=== PATIENT | female | born 1990 | race Caucasian/White ===

== ENCOUNTER 2023-03-12 23:37 | Emergency (ER) | payer SELFPAY ==
[~2023-03-12] VITALS: Ht 160 cm; Wt 68.2 kg
[2023-03-13] MEDS ORDERED: NS 1,000 ML IV ONE (00:30)
[2023-03-13] MEDS ORDERED: SUMAtriptan 25 MG TAB PO ONE (02:30)
[2023-03-13 03:12] VITALS: BP 98/58; PULSE 106; TEMP 99.2
== END 2023-03-13 03:11 | disposition home or self-care (01) ==
LOC: COL.ER 23:37
DX: R51.9 Headache, unspecified (principal)
CPT/HCPCS: J0780; J7030

== ENCOUNTER 2023-03-24 10:11 | Emergency (ER) | payer SELFPAY ==
[~2023-03-24] VITALS: Ht 162.6 cm; Wt 64.5 kg
[2023-03-24 10:19] VITALS: TEMP 98.3
[2023-03-24] MEDS ORDERED: Acetaminophen 500 MG TAB PO ONE (11:15)
[2023-03-24] MEDS ORDERED: Ondansetron 4 MG/2 ML VIAL IV ONE (11:15)
[2023-03-24] MEDS ORDERED: LR 1,000 ML IV ONE (11:15)
[2023-03-24 11:41] LABS: BASO % 0.4 % (0.0-2.0); EOS % 0.2 % (0.0-4.0); GRAN # 7.4 K/mm3 (1.4-6.5); GRAN % 74.9 % (42.2-75.2); HEMATOCRIT 45.3 % (37.0-47.0); HEMOGLOBIN 14.3 g/dl (12.5-16.0); LYMPH # 1.8 K/mm3 (1.2-3.4); LYMPH % 18.5 % (20.0-51.0); MEAN CELL VOLUME 89 fl (80.0-100.0); MEAN CORPUSCULAR HEMOGLOBIN 28 pg (27-31); MEAN CORPUSCULAR HGB CONC 32 g/dl (33.0-37.0); MEAN PLATELET VOLUME 10.4 fl (7.4-10.4); MONO # 0.6 K/mm3 (0.1-0.6); MONO % 5.7 % (1.7-9.3); PLATELET COUNT 333 K/mm3 (130-400); RED BLOOD COUNT 5.11 M/mm3 (4.10-5.30); REDCELL DISTRIBUTION WIDTH-CV 12.6 % (11.5-14.5)
[2023-03-24 11:55] LABS: COLLECTION METHOD CLEAN CATCH
[2023-03-24 11:58] LABS: ALBUMIN 3.7 gm/dL (3.5-5.0); BILIRUBIN,TOTAL 0.5 mg/dL (0.2-1.2); CALCIUM 9.3 mg/dL (8.4-10.2); CREATININE, serum 0.71 mg/dL (0.57-1.11); POTASSIUM 4.2 mmol/L (3.5-4.5); TOTAL PROTEIN 7.2 gm/dL (6.2-8.1)
[2023-03-24 12:11] LABS: PH 8.5 (5.0-8.5); URINE APPEARANCE Cloudy (CLEAR/HAZY); URINE BACTERIA Occasional /hpf (NONE SEEN); URINE BLOOD 2+ (NEGATIVE); URINE COLOR Yellow (YELLOW); URINE GLUCOSE Negative (NEGATIVE); URINE KETONE Negative (NEGATIVE); URINE NITRATE Negative (NEGATIVE); URINE PROTEIN(semi-quant) 2+ (NEGATIVE); URINE UROBILINOGEN 0.2 E.U/dL (0.2-1.0)
[2023-03-24] MEDS ORDERED: ZOFRAN ODT4 MG PO (12:12)
[2023-03-24 12:49] LABS: BILIRUBIN,DIRECT 0.3 mg/dL (0.0-0.5)
[2023-03-24] MEDS ORDERED: cefTRIAXone 1 G in Water For Injection,Sterile 10 ML IV ONE (13:00)
[2023-03-24] MEDS ORDERED: VANTIN 200200 MG/TAB PO (13:45)
[2023-03-24 13:52] VITALS: BP 123/78; PULSE 84
== END 2023-03-24 13:52 | disposition home or self-care (01) ==
LOC: COL.ER 10:11
PROVIDERS: Emergency Medicine
DX: N39.0 Urinary tract infection, site not specified (principal); R11.2 Nausea with vomiting, unspecified; Z90.89 Acquired absence of other organs
CPT/HCPCS: J0696; J2405; J7120

== ENCOUNTER 2023-03-28 10:37 | Emergency (ER) | payer SELFPAY ==
[~2023-03-28] VITALS: Ht 160 cm; Wt 65.0 kg
[~2023-03-28 10:37] MED LIST: VANTIN 200200 MG/TAB PO; ZOFRAN ODT4 MG PO
[2023-03-28 10:45] VITALS: TEMP 98.1
[2023-03-28] MEDS ORDERED: NS 1,000 ML IV ONE (11:00)
[2023-03-28] MEDS ORDERED: Morphine 4 MG/ML VIAL IV ONE (11:00)
[2023-03-28] MEDS ORDERED: cefTRIAXone 1 G in Water For Injection,Sterile 10 ML IV ONE (11:30)
[2023-03-28] MEDS ORDERED: Ketorolac 30 MG/ML VIAL IV ONE (11:30)
[2023-03-28] MEDS ORDERED: Ondansetron 4 MG/2 ML VIAL IV ONE (11:30)
[2023-03-28 11:31] LABS: BASO # 0.1 K/mm3 (0.0-0.2); BASO % 0.7 % (0.0-2.0); EOS # 0.1 K/mm3 (0.0-0.7); EOS % 0.9 % (0.0-4.0); GRAN # 5.4 K/mm3 (1.4-6.5); HEMATOCRIT 45.1 % (37.0-47.0); HEMOGLOBIN 14.5 g/dl (12.5-16.0); LYMPH # 1.8 K/mm3 (1.2-3.4); LYMPH % 23.1 % (20.0-51.0); MEAN CELL VOLUME 88 fl (80.0-100.0); MEAN CORPUSCULAR HEMOGLOBIN 28 pg (27-31); MEAN CORPUSCULAR HGB CONC 32 g/dl (33.0-37.0); MEAN PLATELET VOLUME 10.6 fl (7.4-10.4); MONO # 0.4 K/mm3 (0.1-0.6); PLATELET COUNT 290 K/mm3 (130-400); RED BLOOD COUNT 5.11 M/mm3 (4.10-5.30); REDCELL DISTRIBUTION WIDTH-CV 12.4 % (11.5-14.5)
[2023-03-28 11:50] LABS: BILIRUBIN,TOTAL 0.6 mg/dL (0.2-1.2); CALCIUM 9.8 mg/dL (8.4-10.2); CREATININE, serum 0.76 mg/dL (0.57-1.11); POTASSIUM 3.8 mmol/L (3.5-4.5); TOTAL PROTEIN 7.8 gm/dL (6.2-8.1)
[2023-03-28 11:55] LABS: COLLECTION METHOD CLEAN CATCH
[2023-03-28 12:17] LABS: URINE APPEARANCE Clear (CLEAR/HAZY); URINE COLOR Yellow (YELLOW)
[2023-03-28 12:18] LABS: MUCOUS Present (NOT PRESENT); URINE BLOOD Negative (NEGATIVE); URINE GLUCOSE Negative (NEGATIVE); URINE KETONE Negative (NEGATIVE); URINE NITRATE Negative (NEGATIVE); URINE PROTEIN(semi-quant) Negative (NEGATIVE); URINE RBC 0-2 /hpf (0-2); URINE UROBILINOGEN 0.2 E.U/dL (0.2-1.0)
[2023-03-28] MEDS ORDERED: Iohexol 300 - 100 ML VIAL IV ONE (12:47)
[2023-03-28] MEDS ORDERED: NS 100 ML IV SCH (12:47)
[2023-03-28] MEDS ORDERED: Home Ondansetron ODT 4 MG #2 ODT/PACK PO ONE (13:45)
[2023-03-28 14:34] VITALS: BP 114/76; PULSE 87
== END 2023-03-28 14:36 | disposition home or self-care (01) ==
LOC: COL.ER 10:37
PROVIDERS: Physician Assistant
DX: N83.209 Unspecified ovarian cyst, unspecified side (principal); N39.0 Urinary tract infection, site not specified; Z87.891 Personal history of nicotine dependence; Z90.49 Acquired absence of other specified parts of digestive tract
CPT/HCPCS: J0696; J1885; J2405; J7030; Q9967

== ENCOUNTER 2023-04-04 23:51 | Emergency (ER) | payer SELFPAY ==
[~2023-04-04] VITALS: Ht 162.6 cm; Wt 65.9 kg
[2023-04-05 00:06] VITALS: TEMP 98.8
[2023-04-05] MEDS ORDERED: NS 1,000 ML IV ONE (00:15)
[2023-04-05] MEDS ORDERED: diphenhydrAMINE 50 MG/ML 1 ML VIAL IV ONE (00:15)
[2023-04-05] MEDS ORDERED: Acetaminophen 500 MG TAB PO ONE (01:15)
[2023-04-05] MEDS ORDERED: Ondansetron 4 MG/2 ML VIAL IV ONE (01:15)
[2023-04-05] MEDS ORDERED: Mag/Al Hydrox/Simeth Susp 30 ML CUP PO ONE (01:15)
[2023-04-05 02:10] VITALS: BP 108/76; PULSE 76
== END 2023-04-05 02:11 | disposition home or self-care (01) ==
LOC: COL.ER 23:51
DX: R07.0 Pain in throat (principal); R11.0 Nausea; G40.909 Epilepsy, unspecified, not intractable, without status epilepticus; Z87.891 Personal history of nicotine dependence; Z91.013 Allergy to seafood; Z88.6 Allergy status to analgesic agent
CPT/HCPCS: J1200; J2405; J7030

== ENCOUNTER 2023-04-25 06:17 | Emergency (ER) | payer SELFPAY ==
[~2023-04-25] VITALS: Ht 160 cm; Wt 63.6 kg
[~2023-04-25 06:17] MED LIST changes: +CEFTIN500 MG PO; +FLAGYL500 MG PO
[2023-04-25 06:25] VITALS: TEMP 98
[2023-04-25 06:48] LABS: COLLECTION METHOD CATHETER
[2023-04-25 06:57] LABS: PH 6.5 (5.0-8.5); URINE APPEARANCE CLEAR (CLEAR/HAZY); URINE BLOOD NEGATIVE (NEGATIVE); URINE COLOR YELLOW (YELLOW); URINE GLUCOSE NEGATIVE (NEGATIVE); URINE KETONE NEGATIVE (NEGATIVE); URINE NITRATE NEGATIVE (NEGATIVE); URINE PROTEIN(semi-quant) NEGATIVE (NEGATIVE); URINE UROBILINOGEN 0.2 E.U/dL (0.2-1.0)
[2023-04-25] MEDS ORDERED: Morphine 4 MG/ML VIAL IV ONE (07:00)
[2023-04-25] MEDS ORDERED: NS 1,000 ML IV ONE (07:00)
[2023-04-25] MEDS ORDERED: Ondansetron 4 MG/2 ML VIAL IV ONE (07:00)
[2023-04-25 07:08] LABS: BASO # 0.1 K/mm3 (0.0-0.2); BASO % 0.9 % (0.0-2.0); EOS # 0.1 K/mm3 (0.0-0.7); GRAN # 3.9 K/mm3 (1.4-6.5); GRAN % 55.7 % (42.2-75.2); HEMOGLOBIN 14.6 g/dl (12.5-16.0); LYMPH # 2.4 K/mm3 (1.2-3.4); LYMPH % 34.7 % (20.0-51.0); MEAN CELL VOLUME 87 fl (80.0-100.0); MEAN CORPUSCULAR HEMOGLOBIN 29 pg (27-31); MEAN CORPUSCULAR HGB CONC 33 g/dl (33.0-37.0); MEAN PLATELET VOLUME 10.7 fl (7.4-10.4); MONO # 0.5 K/mm3 (0.1-0.6); MONO % 6.4 % (1.7-9.3); PLATELET COUNT 241 K/mm3 (130-400); RED BLOOD COUNT 5.04 M/mm3 (4.10-5.30); REDCELL DISTRIBUTION WIDTH-CV 12.9 % (11.5-14.5)
[2023-04-25 07:35] LABS: BILIRUBIN,TOTAL 0.6 mg/dL (0.2-1.2); C-REACTIVE PROTEIN 0.06 mg/dL (0.00-0.50); CALCIUM 9.6 mg/dL (8.4-10.2); CREATININE, serum 0.75 mg/dL (0.57-1.11); MAGNESIUM 2.1 mg/dL (1.6-2.6); POTASSIUM 3.7 mmol/L (3.5-4.5); TOTAL PROTEIN 7.3 gm/dL (6.2-8.1)
[2023-04-25] MEDS ORDERED: Iohexol 300 - 100 ML VIAL IV ONE (08:13)
[2023-04-25] MEDS ORDERED: NS 100 ML IV SCH (08:14)
[2023-04-25] MEDS ORDERED: ZOFRAN ODT4 MG PO (09:49)
[2023-04-25] MEDS ORDERED: ROXICODONE 55 MG/TAB PO (09:49)
[2023-04-25 10:05] VITALS: BP 114/78; PULSE 79
== END 2023-04-25 10:03 | disposition home or self-care (01) ==
LOC: COL.ER 06:17
PROVIDERS: Emergency Medicine; Internal Medicine
DX: N83.201 Unspecified ovarian cyst, right side (principal); R11.2 Nausea with vomiting, unspecified; R19.7 Diarrhea, unspecified; Z90.49 Acquired absence of other specified parts of digestive tract
CPT/HCPCS: J2270; J2405; J7030; Q9967

== ENCOUNTER 2023-05-02 04:00 | Emergency (ER) | payer BC ==
[~2023-05-02] VITALS: Ht 162.6 cm; Wt 63.6 kg
[~2023-05-02 04:00] MED LIST changes: +ROXICODONE 55 MG/TAB PO
[2023-05-02 04:41] LABS: STREP A NEGATIVE
[2023-05-02 06:35] VITALS: BP 106/70; PULSE 77; TEMP 98.4
== END 2023-05-02 06:35 | disposition home or self-care (01) ==
LOC: COL.ER 04:00
PROVIDERS: Personal Emergency Response Attendant
DX: B34.9 Viral infection, unspecified (principal); R53.81 Other malaise; R10.2 Pelvic and perineal pain

== ENCOUNTER 2023-05-17 10:09 | Emergency (ER) | payer BC ==
[~2023-05-17] VITALS: Ht 160 cm; Wt 62.3 kg
[~2023-05-17 10:09] MED LIST changes: +NYSTATIN OR100 MU/ML PO
[2023-05-17 10:13] VITALS: TEMP 98
[2023-05-17] MEDS ORDERED: ABILIFY 15MG TA15 MG PO (10:40)
[2023-05-17] MEDS ORDERED: LAMICTAL 100MG100 MG PO (10:40)
[2023-05-17] MEDS ORDERED: NEURONTIN600 MG/TAB PO (10:41)
[2023-05-17] MEDS ORDERED: Acetaminophen 500 MG TAB PO ONE (10:45)
[2023-05-17 10:56] LABS: HEMATOCRIT 41.8 % (37.0-47.0); HEMOGLOBIN 13.9 g/dl (12.5-16.0); MEAN CELL VOLUME 86 fl (80.0-100.0); MEAN CORPUSCULAR HEMOGLOBIN 29 pg (27-31); MEAN CORPUSCULAR HGB CONC 33 g/dl (33.0-37.0); MEAN PLATELET VOLUME 10.6 fl (7.4-10.4); PLATELET COUNT 268 K/mm3 (130-400); RED BLOOD COUNT 4.85 M/mm3 (4.10-5.30); REDCELL DISTRIBUTION WIDTH-CV 12.1 % (11.5-14.5)
[2023-05-17 11:08] LABS: CALCIUM 9.3 mg/dL (8.4-10.2); CREATININE, serum 0.77 mg/dL (0.57-1.11); POTASSIUM 3.7 mmol/L (3.5-4.5)
[2023-05-17 11:55] VITALS: BP 111/74; PULSE 79
== END 2023-05-17 11:56 | disposition home or self-care (01) ==
LOC: COL.ER 10:09
PROVIDERS: Emergency Medicine
DX: G40.909 Epilepsy, unspecified, not intractable, without status epilepticus (principal)

== ENCOUNTER 2023-10-25 17:25 | Emergency (ER) | payer BC ==
[~2023-10-25] VITALS: Ht 162.6 cm; Wt 60.9 kg
[~2023-10-25 17:25] MED LIST changes: +ABILIFY 15MG TA15 MG PO; +LAMICTAL 100MG100 MG PO; +NEURONTIN600 MG/TAB PO; +NORCO 325 MG-51 TAB PO
[2023-10-25 17:32] VITALS: TEMP 98.2
[2023-10-25] MEDS ORDERED: Ibuprofen 400 MG TAB PO ONE (18:45)
[2023-10-25] MEDS ORDERED: Acetaminophen 325 MG TAB PO ONE (18:45)
[2023-10-25 19:26] VITALS: BP 109/70; PULSE 89
== END 2023-10-25 19:27 | disposition home or self-care (01) ==
LOC: COL.ER 17:25
DX: S16.1XXA Strain of muscle, fascia and tendon at neck level, initial encounter (principal); S00.83XA Contusion of other part of head, initial encounter; W22.01XA Walked into wall, initial encounter; Y99.0 Civilian activity done for income or pay

== ENCOUNTER 2023-12-10 00:19 | Emergency (ER) | payer BC ==
[~2023-12-10] VITALS: Ht 160 cm; Wt 59.1 kg
[2023-12-10 00:25] VITALS: TEMP 98.3
[2023-12-10] MEDS ORDERED: Ketorolac 15 MG/ML VIAL IV ONE ×2 (00:45→04:45)
[2023-12-10] MEDS ORDERED: Ondansetron 4 MG/2 ML VIAL IV ONE ×2 (00:45→02:15)
[2023-12-10 00:50] LABS: BASO % 0.4 % (0.0-2.0); EOS # 0.1 K/mm3 (0.0-0.7); EOS % 1.5 % (0.0-4.0); GRAN # 5.2 K/mm3 (1.4-6.5); GRAN % 60.7 % (42.2-75.2); HEMATOCRIT 44.5 % (37.0-47.0); HEMOGLOBIN 14.9 g/dl (12.5-16.0); LYMPH # 2.7 K/mm3 (1.2-3.4); LYMPH % 31.9 % (20.0-51.0); MEAN CELL VOLUME 85 fl (80.0-100.0); MEAN CORPUSCULAR HEMOGLOBIN 29 pg (27-31); MEAN CORPUSCULAR HGB CONC 34 g/dl (33.0-37.0); MEAN PLATELET VOLUME 10.6 fl (7.4-10.4); MONO # 0.5 K/mm3 (0.1-0.6); MONO % 5.3 % (1.7-9.3); PLATELET COUNT 297 K/mm3 (130-400); RED BLOOD COUNT 5.21 M/mm3 (4.10-5.30); REDCELL DISTRIBUTION WIDTH-CV 12.4 % (11.5-14.5)
[2023-12-10 00:53] LABS: COLLECTION METHOD CLEAN CATCH
[2023-12-10 01:02] LABS: PH 7.5 (5.0-8.5); URINE APPEARANCE CLEAR (CLEAR/HAZY); URINE BLOOD NEGATIVE (NEGATIVE); URINE COLOR YELLOW (YELLOW); URINE GLUCOSE NEGATIVE (NEGATIVE); URINE KETONE NEGATIVE (NEGATIVE); URINE NITRATE NEGATIVE (NEGATIVE); URINE PROTEIN(semi-quant) NEGATIVE (NEGATIVE)
[2023-12-10 01:11] LABS: ALBUMIN 3.8 g/dL (3.5-5.0); BILIRUBIN,TOTAL 0.5 mg/dL (0.2-1.2); CALCIUM 9.7 mg/dL (8.4-10.2); CREATININE, serum 0.75 mg/dL (0.57-1.11); POTASSIUM 3.7 mEq/L (3.5-4.5); TOTAL PROTEIN 7.5 g/dl (6.2-8.1)
[2023-12-10 01:17] LABS: TROPONIN-I 0.016 ng/mL (0.00-0.033)
[2023-12-10] MEDS ORDERED: NS 50 ML IV SCH (02:09)
[2023-12-10] MEDS ORDERED: Iohexol 300 - 100 ML VIAL IV ONE (02:09)
[2023-12-10] MEDS ORDERED: Dicyclomine 10 MG/ML 2 ML VIAL IM ONE (02:15)
[2023-12-10] MEDS ORDERED: diphenhydrAMINE 50 MG/ML 1 ML VIAL IV ONE (02:15)
[2023-12-10 04:45] VITALS: BP 108/71; PULSE 67
== END 2023-12-10 04:47 | disposition home or self-care (01) ==
LOC: COL.ER 00:19
PROVIDERS: Emergency Medicine
DX: R10.31 Right lower quadrant pain (principal); Z87.42 Personal history of other diseases of the female genital tract
CPT/HCPCS: J0500; J1885; J2405; Q9967

== ENCOUNTER 2023-12-25 19:59 | Emergency (ER) | payer BC ==
[~2023-12-25] VITALS: Ht 162.6 cm; Wt 195.5 kg
[2023-12-25 20:11] VITALS: TEMP 98.6
[2023-12-25 21:12] LABS: COLLECTION METHOD CLEAN CATCH
[2023-12-25 21:21] LABS: PH 7.5 (5.0-8.5); URINE APPEARANCE CLEAR (CLEAR/HAZY); URINE BLOOD NEGATIVE (NEGATIVE); URINE GLUCOSE NEGATIVE (NEGATIVE); URINE KETONE NEGATIVE (NEGATIVE); URINE NITRATE NEGATIVE (NEGATIVE); URINE PROTEIN(semi-quant) NEGATIVE (NEGATIVE); URINE UROBILINOGEN 0.2 E.U/dL (0.2-1.0)
[2023-12-25 21:23] LABS: URINE COLOR YELLOW (YELLOW)
[2023-12-25] MEDS ORDERED: NS 1,000 ML IV ONE (21:30)
[2023-12-25] MEDS ORDERED: Ondansetron 4 MG/2 ML VIAL IV ONE (21:45)
[2023-12-25] MEDS ORDERED: Morphine 4 MG/ML VIAL IV ONE ×2 (21:45→23:45)
[2023-12-25 22:49] LABS: BASO # 0.1 K/mm3 (0.0-0.2); BASO % 0.8 % (0.0-2.0); EOS # 0.3 K/mm3 (0.0-0.7); EOS % 3.2 % (0.0-4.0); GRAN # 6.1 K/mm3 (1.4-6.5); GRAN % 61.9 % (42.2-75.2); HEMATOCRIT 42.3 % (37.0-47.0); HEMOGLOBIN 13.9 g/dl (12.5-16.0); LYMPH # 2.8 K/mm3 (1.2-3.4); LYMPH % 28.2 % (20.0-51.0); MEAN CELL VOLUME 88 fl (80.0-100.0); MEAN CORPUSCULAR HEMOGLOBIN 29 pg (27-31); MEAN CORPUSCULAR HGB CONC 33 g/dl (33.0-37.0); MONO # 0.6 K/mm3 (0.1-0.6); MONO % 5.6 % (1.7-9.3); PLATELET COUNT 322 K/mm3 (130-400); RED BLOOD COUNT 4.81 M/mm3 (4.10-5.30); REDCELL DISTRIBUTION WIDTH-CV 12.5 % (11.5-14.5)
[2023-12-25 23:04] LABS: ALBUMIN 3.8 g/dL (3.5-5.0); BILIRUBIN,TOTAL 0.4 mg/dL (0.2-1.2); C-REACTIVE PROTEIN 0.08 mg/dL (0.00-0.50); CALCIUM 9.5 mg/dL (8.4-10.2); CREATININE, serum 0.73 mg/dL (0.57-1.11); POTASSIUM 3.6 mEq/L (3.5-4.5); TOTAL PROTEIN 7.4 g/dl (6.2-8.1)
[2023-12-25] MEDS ORDERED: Iohexol 300 - 100 ML VIAL IV ONE (23:30)
[2023-12-25] MEDS ORDERED: NS 100 ML IV ONE (23:32)
[2023-12-26 01:29] VITALS: BP 112/73; PULSE 88
== END 2023-12-26 01:00 | disposition home or self-care (01) ==
LOC: COL.ER 19:59
PROVIDERS: Emergency Medicine
DX: R10.32 Left lower quadrant pain (principal); N83.202 Unspecified ovarian cyst, left side
CPT/HCPCS: J2270; J2405; J7030; Q9967